=== PATIENT | male | born 1950 | race Caucasian/White ===

== ENCOUNTER 2017-02-18 11:14 | Outpatient (CLI) | payer MEDICARE, OTHER | END 2017-02-18 11:15 | disposition critical access hospital (66) | LOC: EMS 11:14 | PROVIDERS: ATTEND Surgery | DX: T63.461A Toxic effect of venom of wasps, accidental (unintentional), initial encounter (principal); R22.0 Localized swelling, mass and lump, head; R52 Pain, unspecified; L29.9 Pruritus, unspecified; Y92.838 Other recreation area as the place of occurrence of the external cause | CPT/HCPCS: A0425; A0427 ==

== ENCOUNTER 2017-02-18 11:29 | Emergency (ER) | payer MEDICARE, OTHER ==
[2017-02-18 11:34] VITALS: BP 144/94
[2017-02-18] MEDS ORDERED: DEXAMETHASONE 10 MG/ML VIAL IVP STA (11:36)
[2017-02-18] MEDS ORDERED: DEXAMETHASONE 10 MG/ML VIAL ONE (11:40)
--- NOTE | 2017-02-18 12:07 | ED Physician Documentation ---
History of Present Illness - Stated complaint Stated Complaint: MULTIPLE BEE STING - Chief complaint Chief Complaint: General - History obtained from History obtained from: Patient, EMS - History of Present Illness Timing: Today - Additonal information Additional information: 66-year-old male was outside working when he was stung by multiple hornets. He has some swelling of his upper lip and urticaria on his arms he did not develop shortness of breath he had multiple stings was seen by EMS and administered Benadryl prior to arrival here. He is having less itching when he arrives. Review of Systems Constitutional: denies: Fever, Chills Eyes: denies: Decreased vision Ears: denies: Ear pain Nose: denies: Congestion Throat: denies: Sore throat Cardiac: denies: Chest pain / pressure, Palpitations Respiratory: denies: Dyspnea, Cough, Wheezing GI: denies: Abdominal Pain, Nausea, Vomiting : denies: Dysuria, Frequency, Discharge Musculoskeletal: denies: Neck pain, Back pain, Extremity pain Neurologic: denies: Generalized weakness, Focal weakness, Numbness PD PAST MEDICAL HISTORY - Past Medical History Cardiovascular: None Respiratory: None Endocrine/Autoimmune: None GI: None : Benign prostate hypertrophy HEENT: Chronic vision loss, Other Psych: None Musculoskeletal: Osteoarthritis Derm: None, Other Other Past Medical History: adult acne - Past Surgical History Past Surgical History: Yes General: Colonoscopy, Other HEENT: Other - Present Medications Home Medications: Ambulatory Orders Medication Instructions Recorded Confirmed Ibuprofen 1 ea PO DAILY 03/30/16 02/18/17 Azithromycin [Zithromax] 250 mg PO DAILY #6 tablet 05/27/16 02/18/17 - Allergies Allergies/Adverse Reactions: Allergies Allergy/AdvReac Type Severity Reaction Status Date / Time oxacillin Allergy Unknown Verified 05/27/16 07:18 - Social History Does the pt smoke?: No Smoking Status: Never smoker Does the pt drink ETOH?: Yes Does the pt have substance abuse?: No - Immunizations Immunizations are current?: No Immunizations: TDAP >10years/unknown PD ED PE NORMAL - Vitals Vital signs reviewed: Yes (Hypertensive) - General General: No acute distress, Well developed/nourished - HEENT HEENT: Atraumatic, PERRL, EOMI, Other (There is some swelling to the left upper lip consistent with edema from a sting.) - Neck Neck: Supple, no meningeal sign, No bony TTP - Cardiac Cardiac: RRR, No murmur - Respiratory Respiratory: No respiratory distress, Clear bilaterally - Abdomen Abdomen: Soft, Non tender - Back Back: No CVA TTP, No spinal TTP - Derm Derm: Normal color, Warm and dry, No rash - Extremities Extremities: No deformity, No edema - Neuro Neuro: No motor deficit, No sensory deficit - Psych Psych: Normal mood, Normal affect Results - Vitals Vitals: Vital Signs - 24 hr 02/18/17 11:31 Temperature 36.9 C Heart Rate 72 Respiratory 16 Rate Blood Pressure 144/94 H O2 Saturation 96 Oxygen O2 Source Room air PD MEDICAL DECISION MAKING - ED course Complexity details: considered differential, d/w patient ED course: 66-year-old male with multiple bee stings appears compensated now with IV Benadryl being given in the field he is administered dexamethasone 10 mg intravenously here in the emergency department. Departure - Departure Disposition: 01 Home, Self Care Clinical Impression: Bee sting reaction Qualifiers: Encounter type: initial encounter Injury intent: accidental or unintentional Qualified Code(s): T63.441A - Toxic effect of venom of bees, accidental ( unintentional), initial encounter Condition: Stable Instructions: ED Bite Sting Insect Gen Allergic React Follow-Up: RADHA MENDENHALL [Primary Care Provider] -
== END 2017-02-18 12:23 | disposition home or self-care (01) ==
LOC: EDUNIT# → ED 11:29
DX: T63.441A Toxic effect of venom of bees, accidental (unintentional), initial encounter (principal); R60.0 Localized edema
CPT/HCPCS: 96374; 99283

== ENCOUNTER 2018-01-24 20:14 | Emergency (ER) | payer MEDICARE, OTHER ==
[2018-01-24] MEDS ORDERED: TETANUS/DIPHTHERIA/PERTUSSIS 0.5 ML SYRINGE IM ONE (21:03)
[2018-01-24 23:05] VITALS: BP 145/85
--- NOTE | 2018-01-24 23:14 | ED Physician Documentation ---
PD HPI UPPER EXT INJURY - Stated complaint Stated Complaint: HAND LAC - Chief complaint Chief Complaint: Laceration - History obtained from History obtained from: Patient - History of Present Illness Location: Right Type of injury: Fall, Laceration [place] injury occurred: [place] Timing - onset: Today Timing - details: Abrupt onset, Still present Worsened by: Moving, Palpating Similar symptoms before: Has not had sx before Recently seen: Not recently seen - Additonal information Additional information: Patient is a 67 year old male presenting to the emergency department for hand laceration after falling. patient states that he was cleaning up and helping to build a trail when he fell, cutting his hand on a rock. Patient denies any other injuries and is not up to date on his tetanus. Review of Systems Ten Systems: 10 systems reviewed and negative Skin: reports: Laceration (s) PD PAST MEDICAL HISTORY - Past Medical History Cardiovascular: None Respiratory: None Endocrine/Autoimmune: None GI: None : Benign prostate hypertrophy HEENT: Chronic vision loss, Other Psych: None Musculoskeletal: Osteoarthritis Derm: None, Other - Past Surgical History Past Surgical History: Yes General: Colonoscopy, Other HEENT: Other - Present Medications Home Medications: Ambulatory Orders Medication Instructions Recorded Confirmed Ibuprofen 1 ea PO DAILY 03/30/16 02/18/17 Azithromycin [Zithromax] 250 mg PO DAILY #6 tablet 05/27/16 02/18/17 - Allergies Allergies/Adverse Reactions: Allergies Allergy/AdvReac Type Severity Reaction Status Date / Time oxacillin Allergy Unknown Verified 01/24/18 20:27 - Social History Does the pt smoke?: No Smoking Status: Never smoker Does the pt drink ETOH?: Yes Does the pt have substance abuse?: No - Immunizations Immunizations are current?: No Immunizations: TDAP >10years/unknown PD ED PE NORMAL - Vitals Vital signs reviewed: Yes - General General: No acute distress - HEENT HEENT: Atraumatic - Cardiac Cardiac: RRR - Respiratory Respiratory: No respiratory distress - Abdomen Abdomen: Non distended - Neuro Neuro: Alert and oriented X 3 Eye Opening: Spontaneous PD ED PE EXPANDED - Derm Derm: Laceration(s) - Extremities Extremities: Right hand (flap laceartion of phan surface of right hand) Results - Vitals Vitals: Vital Signs - 24 hr 01/24/18 01/24/18 20:15 23:04 Temperature 36.4 C L 36.1 C L Heart Rate 50 L 54 L Respiratory 18 16 Rate Blood Pressure 136/88 H 145/85 H O2 Saturation 100 95 Oxygen O2 Source Room air Procedures - Laceration (location) right hand Length in cm: 3 Wound type: Irregular Neurovascular status: Sensory intact, Vascular intact Anesthesia: Lidocaine 1% with epi Wound Preparation: Irrigated copiously NS Skin layer closure: Size #-0 - enter number (4), Sutures - enter # (7) Other: Patient tolerated well, Neurovascular intact, Dressing applied, Tetanus booster given Complexity: Simple PD MEDICAL DECISION MAKING - ED course Complexity details: reviewed old records, reviewed results, re-evaluated patient , considered differential, d/w patient ED course: patient was seen and examined at bedside. Patient's wound was cleaned and repaired as described above. Patient was treated with tdap. patient required no further work up at this time and was stable for discharge with outpatient follow up. - Sepsis Event Vital Signs: Vital Signs - 24 hr 01/24/18 01/24/18 20:15 23:04 Temperature 36.4 C L 36.1 C L Heart Rate 50 L 54 L Respiratory 18 16 Rate Blood Pressure 136/88 H 145/85 H O2 Saturation 100 95 Oxygen O2 Source Room air Departure - Departure Disposition: 01 Home, Self Care Clinical Impression: Laceration Condition: Good Instructions: ED Laceration Hand Follow-Up: RADHA MENDENHALL [Primary Care Provider] - Within 3 Days Comments: You should keep your wound clean and dry. You should apply topical antibiotics as needed. You should monitor for signs of infection. You can take motrin and tylenol as needed for pain as well as icing the wound. You should have your sutures removed in 10 days. You should return to the emergency department at any time for new, worsening or uncontrollable symptoms. Discharge Date/Time: 01/24/18 23:26
== END 2018-01-24 23:26 | disposition home or self-care (01) ==
LOC: ED 20:14
DX: S61.411A Laceration without foreign body of right hand, initial encounter (principal); W18.30XA Fall on same level, unspecified, initial encounter; W26.8XXA Contact with other sharp object(s), not elsewhere classified, initial encounter; Y92.830 Public park as the place of occurrence of the external cause; Z23 Encounter for immunization
CPT/HCPCS: 12002; 90471; 99282; 99283

== ENCOUNTER 2018-12-09 08:57 | Emergency (ER) | payer MEDICARE, OTHER ==
--- NOTE | 2018-12-09 09:00 | ED Physician Documentation ---
PD HPI SKIN - Stated complaint Stated Complaint: LT ARM SWELLING - History obtained from History obtained from: Patient - History of Present Illness Timing - onset: Yesterday Timing - details: Abrupt onset, Still present (continual worsening since time of bite. was hiking near [place] when got stung. Had increased swelling through day, but it also was more swollen today.) Location: LUE (forearm) Quality / character: Painful, Discolored (red), Swelling, Other (He denies any feeling of numbness or weakness through the fingers. He is able to flex and extend his fingers without pain. The main discomfort is a pressure feeling in the forearm and with swelling.) Associated symptoms: No: Fever, N/V/D Contributing factors: Insect bite /sting Similar symptoms before: Has not had sx before Review of Systems Constitutional: reports: Myalgias. denies: Fever, Chills Nose: denies: Rhinorrhea / runny nose, Congestion Throat: denies: Sore throat Cardiac: denies: Chest pain / pressure, Palpitations Respiratory: denies: Dyspnea, Cough, Wheezing GI: denies: Nausea, Vomiting Neurologic: denies: Focal weakness, Numbness PD PAST MEDICAL HISTORY - Past Medical History Cardiovascular: None Respiratory: None Endocrine/Autoimmune: None GI: None : Benign prostate hypertrophy HEENT: Chronic vision loss, Other Psych: None Musculoskeletal: Osteoarthritis Derm: None, Other - Past Surgical History Past Surgical History: Yes General: Colonoscopy, Other HEENT: Other - Present Medications Home Medications: Ambulatory Orders Medication Instructions Recorded Confirmed Ibuprofen 1 ea PO DAILY 03/30/16 02/18/17 Azithromycin [Zithromax] 250 mg PO DAILY #6 tablet 05/27/16 02/18/17 Cetirizine [ZyrTEC] 10 mg PO DAILY #15 tablet 12/09/18 EPINEPHrine [Epinephrine] 0.3 mg IJ ONCE PRN #1 auto.injct 12/09/18 dexAMETHasone [Decadron] 4 mg PO DAILY #7 tablet 12/09/18 - Allergies Allergies/Adverse Reactions: Allergies Allergy/AdvReac Type Severity Reaction Status Date / Time oxacillin Allergy Unknown Verified 01/24/18 20:27 - Social History Does the pt smoke?: No Smoking Status: Never smoker Does the pt drink ETOH?: Yes Does the pt have substance abuse?: No - Immunizations Immunizations are current?: No Immunizations: TDAP >10years/unknown PD ED PE NORMAL - Vitals Vital signs reviewed: Yes - General General: Alert and oriented X 3, No acute distress, Well developed/nourished - HEENT HEENT: Pharynx benign - Cardiac Cardiac: RRR, No murmur - Respiratory Respiratory: Clear bilaterally - Derm Derm: Normal color, Warm and dry, Other (The left forearm shows a area of particular firmness and induration around a bee sting site on the volar forearm. There is general redness swelling and some tenseness of the skin from the wrist to the elbow. The hand itself is without any edema. There is normal sensation color and capillary refill in the fingers. He is able to flex and extend his fingers. Wrist motion is also good. He mostly feels pressure in the forearm scan. There is no general rash.) - Extremities Extremities: Other (left forearm with redness and swelling, feeling tense in skin. No pain with art museum aide of hand. Moves fingers without pain. Normal color and cap refill in fingers. ) - Neuro Neuro: No motor deficit, No sensory deficit Results - Vitals Vitals: Vital Signs - 24 hr 12/09/18 12/09/18 09:09 10:06 Heart Rate 67 72 Respiratory 14 16 Rate Blood Pressure 118/78 122/69 O2 Saturation 96 99 Oxygen O2 Source Room air PD MEDICAL DECISION MAKING - ED course Complexity details: considered differential (It does not sound like any compartment syndrome through the muscle compartments but really edema of the skin without any effect on the neuro vascular. He has local symptoms only without any general reaction. However he would like to have an EpiPen prescribed for possible worsening next time as he is outdoors a lot. We will treat now with steroids and antihistamines.), d/w patient Departure - Departure Disposition: 01 Home, Self Care Clinical Impression: Local reaction to bee sting Qualifiers: Encounter type: initial encounter Injury intent: assault Qualified Code(s): T63 .443A - Toxic effect of venom of bees, assault, initial encounter Condition: Stable Record reviewed to determine appropriate education?: Yes Instructions: ED Bite Sting Insect Local Allergic React Prescriptions: Cetirizine [ZyrTEC] 10 mg PO DAILY #15 tablet dexAMETHasone [Decadron] 4 mg PO DAILY #7 tablet EPINEPHrine [Epinephrine] 0.3 mg IJ ONCE PRN #1 auto.injct PRN Reason: Anaphylaxis Comments: Use some cool towels to the forearm periodically through the day. Elevate it. You could put an David wrap on there for swelling as well. Do not put ice directly as the skin is more prone to injury with the swelling that way. Use antihistamines such as cetirizine long-acting for several days to week. Add Benadryl short acting antihistamine for redness and itchiness and swelling. Decadron steroid daily for 4 5 days to outlast the venom effect. This is still a very good effect but still local effect and you do not have symptoms to suggest a general allergic reaction. However he can carry an EpiPen with you when you are out hiking in case subsequent reactions are more generalized. The EpiPen is mainly advised for general allergic reactions and not local reactions. Discharge Date/Time: 12/09/18 10:08
[2018-12-09] MEDS ORDERED: DEXAMETHASONE 10 MG/ML VIAL PO STA (09:18)
[2018-12-09] MEDS ORDERED: diphenhydrAMINE 25 MG CAPSULE PO STA (09:18)
[2018-12-09] MEDS ORDERED: CETIRIZINE 10 MG TABLET PO STA (09:18)
[2018-12-09] MEDS ORDERED: CHERRY SYRUP 10 ML UDC PO ONE (09:18)
[2018-12-09 10:07] VITALS: BP 122/69
== END 2018-12-09 10:08 | disposition home or self-care (01) ==
LOC: ED 08:57
DX: T63.441A Toxic effect of venom of bees, accidental (unintentional), initial encounter (principal); M79.89 Other specified soft tissue disorders; Y92.838 Other recreation area as the place of occurrence of the external cause
CPT/HCPCS: 99283; 99284; A9270

== ENCOUNTER 2023-11-02 18:14 | Outpatient (CLI) | payer MEDICARE, OTHER | END 2023-11-02 18:15 | disposition critical access hospital (66) | LOC: EMS 18:14 | DX: R10.11 Right upper quadrant pain (principal); R11.0 Nausea | CPT/HCPCS: A0425; A0427 ==

== ENCOUNTER 2023-11-02 18:37 | Emergency (ER) | payer MEDICARE, OTHER ==
[2023-11-02 18:47] VITALS: O2SAT 96
--- NOTE | 2023-11-02 18:53 | ED Physician Documentation ---
PD HPI ABD PAIN - Stated complaint Stated Complaint: RUQ ABD PAIN, NAUSEA - Chief complaint Chief Complaint: Abd Pain - History obtained from History obtained from: Patient - Additional information Additional information: Patient is a 73-year-old male with history of prior hernia repair presenting for evaluation of right upper quadrant abdominal pain that started at 530 PM and felt sharp with associated nausea. He states that the pain has resolved now. He states he does have a history of getting gallbladder attacks. He last had lunch around noon time which consisted of ramirez and eggs.He still has his gallbladder. Last bowel movement was today and normal for him. No dysuria or hematuria. No back pain. No fever, chest pain or difficulty breathing. Review of Systems Constitutional: denies: Fever Cardiac: denies: Chest pain / pressure Respiratory: denies: Dyspnea GI: reports: Abdominal Pain : denies: Dysuria Musculoskeletal: denies: Back pain PD PAST MEDICAL HISTORY - Past Medical History Past Medical History: Yes Cardiovascular: None Respiratory: None Endocrine/Autoimmune: None GI: None : Benign prostate hypertrophy HEENT: Chronic vision loss, Other Psych: None Musculoskeletal: Osteoarthritis Derm: None, Other - Past Surgical History Past Surgical History: Yes General: Colonoscopy, Other HEENT: Other - Present Medications Home Medications: Ambulatory Orders Medication Instructions Recorded Confirmed Ibuprofen 1 ea PO DAILY 03/30/16 02/18/17 Azithromycin [Zithromax] 250 mg PO DAILY #6 tablet 05/27/16 02/18/17 Cetirizine [ZyrTEC] 10 mg PO DAILY #15 tablet 12/09/18 EPINEPHrine [Epinephrine] 0.3 mg IJ ONCE PRN #1 auto.injct 12/09/18 dexAMETHasone [Decadron] 4 mg PO DAILY #7 tablet 12/09/18 - Allergies Allergies/Adverse Reactions: Allergies Allergy/AdvReac Type Severity Reaction Status Date / Time oxacillin Allergy Unknown Verified 11/02/23 18:44 - Social History Does the pt smoke?: No Smoking Status: Never smoker Does the pt drink ETOH?: Yes Does the pt have substance abuse?: No - Immunizations Immunizations are current?: No Immunizations: TDAP >10years/unknown - POLST Patient has POLST: No PD ED PE NORMAL - General General: Alert and oriented X 3, No acute distress, Well developed/nourished - HEENT HEENT: Atraumatic - Neck Neck: Supple, no meningeal sign - Cardiac Cardiac: RRR, Strong equal pulses - Respiratory Respiratory: No respiratory distress, Clear bilaterally - Abdomen Abdomen: Normal bowel sounds, Soft, Non distended, Other (Left upper quadrant tenderness, no right upper quadrant tenderness with deep palpation) - Derm Derm: Warm and dry - Neuro Neuro: Normal speech Results - Vitals Vitals: Vital Signs - 24 hr 11/02/23 11/02/23 11/02/23 18:40 19:23 20:18 Temperature 36.9 C Heart Rate 58 L 50 L 62 Respiratory 20 14 16 Rate Blood Pressure 130/76 128/81 H 132/80 H O2 Saturation 96 96 Oxygen O2 Source Room air - EKG (time done) 1909 EKG releavant findings:: EKG personally interpreted by author of this note. Relevant findings are: Rate 54, normal sinus rhythm, no STEMI, QTc 403 - Labs Labs: Laboratory Tests 11/02/23 11/02/23 11/02/23 19:00 19:00 19:20 WBC 5.3 RBC 4.78 Hgb 14.1 Hct 42.1 MCV 88.1 MCH 29.5 MCHC 33.5 RDW 13.2 Plt Count 254 MPV 9.3 Neut # (Auto) 3.2 Lymph # (Auto) 1.3 L [place] # (Auto) 0.6 Eos # (Auto) 0.2 Baso # (Auto) 0.0 Absolute Nucleated RBC 0.00 Nucleated RBC % 0.0 Sodium 140 Potassium 4.0 Chloride 108 Carbon Dioxide 25 Anion Gap 7.0 BUN 21 H Creatinine 1.1 Estimated GFR (MDRD) 66 L Glucose 99 Calcium 8.7 Total Bilirubin 0.5 AST 21 ALT 23 Alkaline Phosphatase 69 Total Protein 6.6 Albumin 4.0 Globulin 2.6 Albumin/Globulin Ratio 1.5 Lipase 13 Urine Color LT. YELLOW Urine Clarity CLEAR Urine pH 6.0 Ur Specific [place] 1.025 Urine Protein NEGATIVE Urine Glucose (UA) NEGATIVE Urine Ketones NEGATIVE Urine Occult Blood NEGATIVE Urine Nitrite NEGATIVE Urine Bilirubin NEGATIVE Urine Urobilinogen 0.2 (NORMAL) Ur Leukocyte Esterase TRACE H Urine RBC None Seen Urine WBC 4-5 Ur Squamous Epith Cells NONE SEEN Urine Bacteria Rare Ur Microscopic Review INDICATED Urine Culture Comments INDICATED PD Medical Decision Making - ED course Complexity details: reviewed results, re-evaluated patient, d/w patient ED course: Patient is a 73-year-old male presenting for evaluation of right upper quadrant pain that occurred earlier this evening. Upon arrival here pain has resolved and he had mild tenderness in the left upper quadrant on exam. EKG was reviewed and nonischemic. CBC, chemistries were obtained and reviewed. Urine analysis without overt signs for infection and patient without UTI symptoms. No blood in urine. Patient has been feeling well here without recurrence of his symptoms. Repeat abdominal exam is benign. Patient would like to hold off on abdominal imaging at this time as his symptoms have improved but understands importance of returning to the ER should they recur or he develop any worsening. Departure - Departure Disposition: 01 Home, Self Care Clinical Impression: Upper abdominal pain Condition: Stable Instructions: ED Abdominal Pain Unkn Cause Male Comments: Your testing tonight shows reassuring labs and it is also reassuring that your pain has improved without any medication or treatment here. At this time because your symptoms have resolved and your lab tests are normal we have opted to hold on doing any imaging of your abdomen. If you have a recurrence of your symptoms or develop any new symptoms then please return to the emergency department for another evaluation. Forms: PCP List Discharge Date/Time: 11/02/23 20:19
[2023-11-02 19:11] LABS: BASOPHILS % (AUTO) 0.6 %; EOSINOPHILS # (AUTO) 0.2 10^3/uL (0.0-0.7); EOSINOPHILS % (AUTO) 3.2 %; HCT - HEMATOCRIT 42.1 % (42.0-52.0); HGB - HEMOGLOBIN 14.1 g/dL (14.0-18.0); LYMPHOCYTES # (AUTO) 1.3 10^3/uL (1.5-3.5); LYMPHOCYTES % (AUTO) 24.9 %; MEAN CORPUSCULAR HEMOGLOBIN 29.5 pg (27.0-31.0); MEAN CORPUSCULAR HGB CONC 33.5 g/dL (32.0-36.0); MEAN CORPUSCULAR VOLUME 88.1 fL (80.0-94.0); MEAN PLATELET VOLUME 9.3 fL (7.4-11.4); MONOCYTES # (AUTO) 0.6 10^3/uL (0.0-1.0); MONOCYTES % (AUTO) 10.5 %; NEUTROPHILS # (AUTO) 3.2 10^3/uL (1.5-6.6); NEUTROPHILS % (AUTO) 60.4 %; PLT - PLATELET COUNT 254 10^3/uL (130-450); RED BLOOD COUNT 4.78 10^6/uL (4.70-6.10); RED CELL DISTRIBUTION WIDTH 13.2 % (12.0-15.0); WHITE BLOOD COUNT 5.3 x10^3/uL (4.8-10.8)
[2023-11-02 19:25] LABS: ALBUMIN/GLOBULIN RATIO 1.5 (1.0-2.2); BILIRUBIN,TOTAL 0.5 mg/dL (0.2-1.0); CALCIUM 8.7 mg/dL (8.5-10.3); CREATININE 1.1 mg/dL (0.6-1.3); TOTAL PROTEIN 6.6 g/dL (6.4-8.9)
[2023-11-02 19:34] LABS: BILIRUBIN,URINE NEGATIVE (NEGATIVE); GLUCOSE, URINE (UA) NEGATIVE (NEGATIVE); KETONES,URINE (UA) NEGATIVE (NEGATIVE); LEUKOCYTE ESTERASE, URINE TRACE (NEGATIVE); NITRITE,URINE NEGATIVE (NEGATIVE); OCCULT BLOOD,URINE NEGATIVE (NEGATIVE); PROTEIN,URINE NEGATIVE (NEGATIVE); UROBILINOGEN,URINE 0.2 (NORMAL) E.U./dL (NORMAL)
[2023-11-02 19:35] LABS: CLARITY,URINE CLEAR (CLEAR)
[2023-11-02 19:41] LABS: BACTERIA,URINE Rare /HPF (None Seen); RBC,URINE None Seen /HPF (0-5); SQUAMOUS EPITHELIAL CELL,UR NONE SEEN (<= Few)
[2023-11-02 20:21] VITALS: BP 132/80
== END 2023-11-02 20:19 | disposition home or self-care (01) ==
LOC: EDUNIT# → ED 18:37
DX: R10.11 Right upper quadrant pain (principal); Z79.899 Other long term (current) drug therapy
CPT/HCPCS: 36415; 80053; 81001; 81003; 83690; 85025; 87086; 93005; 99283; 99284